=== PATIENT | female | born 1955 | race Caucasian/White ===

== ENCOUNTER 2019-06-18 21:19 | Emergency (ER) | payer MEDICARE ==
[~2019-06-18] VITALS: Ht 167.6 cm; Wt 71.0 kg
[2019-06-18] MEDS ORDERED: IV NORMAL SALINE 1,000ML 1,000 ML IV ONE (22:15)
[2019-06-18] MEDS ORDERED: ONDANSETRON PF 4 MG/2 ML VIAL. IV ONE (22:15)
[2019-06-18 22:45] LABS: BASO % 1 % (0-3); EOS % 0 % (0-3); HEMOGLOBIN 13.9 g/dL (12.0-15.5); LYMPH # 0.4 x10^3/uL (1.0-4.8); LYMPH % 8 % (24-48); MEAN CORPUSCULAR HEMOGLOBIN 28 pg (25-35); MEAN CORPUSCULAR HGB CONC 33 g/dL (31-37); MEAN CORPUSCULAR VOLUME 85 fL (79-100); MONO # 0.5 x10^3/uL (0.0-1.1); MONO % 11 % (0-9); NEUT # 3.9 x10^3uL (1.8-7.7); NEUT % 79 % (31-73); PLATELET COUNT 260 x10^3/uL (140-400); RED BLOOD COUNT 4.93 x10^6/uL (3.50-5.40); RED CELL DISTRIBUTION WIDTH 13.4 % (11.5-14.5); WHITE BLOOD COUNT 4.9 x10^3/uL (4.0-11.0)
[2019-06-18 22:51] LABS: CALCIUM 9.2 mg/dL (8.5-10.1); CREATININE 0.8 mg/dL (0.6-1.0); POTASSIUM 3.8 mmol/L (3.5-5.1)
[2019-06-18 22:57] LABS: BACTERIA,URINE 0 /HPF (0-FEW); BILIRUBIN,URINE NEG (NEG); CLARITY,URINE CLEAR; COLOR,URINE YELLOW; GLUCOSE,URINE NEG (NEG); NITRITE,URINE NEG (NEG); SQUAMOUS EPITHELIAL CELL,UR FEW /LPF; UROBILINOGEN,URINE 0.2 mg/dL (0.2 mg/dL)
[2019-06-18 22:57] LABS: ALBUMIN 3.9 g/dL (3.4-5.0); ALBUMIN/GLOBULIN RATIO 1.1 (1.0-1.7); TOTAL BILIRUBIN 0.2 mg/dL (0.2-1.0); TOTAL PROTEIN 7.5 g/dL (6.4-8.2)
[2019-06-18 22:58] LABS: HYALINE CASTS, URINE OCC /HPF
--- NOTE | 2019-06-18 23:19 | RAD ---
STUDY: CT head without contrast INDICATION: Severe headache. COMPARISON: None. TECHNIQUE: Axial CT imaging through the head without the use of intravenous contrast. Sagittal and coronal reformats were obtained. One or more of the following individualized dose reduction techniques were utilized for this examination: 1. Automated exposure control 2. Adjustment of the mA and/or kV according to patient size 3. Use of iterative reconstruction technique. FINDINGS: No acute intracranial hemorrhage. Lawrence-white matter differentiation is maintained. No mass effect, midline shift or hydrocephalus. Relatively age-appropriate parenchymal volume loss. Unremarkable orbits and scalp. Intact calvarium. Partially visualized mild bilateral maxillary sinus mucosal thickening without layering fluid. IMPRESSION: No acute intracranial abnormality. Electronically signed by: YAZMIN BRYANT MD (06/18/2019 11:16 PM) [id number]
--- NOTE | 2019-06-19 00:04 | RAD ---
AP chest. HISTORY: Fever AP view was taken of the chest. There is linear scarring or atelectasis at the left costophrenic angle. Lungs are otherwise free of infiltrates. Heart is normal in size. There is no effusion. There is a granuloma on the right. IMPRESSION: 1. No acute infiltrates. Electronically signed by: Eulalio Lemus MD (06/19/2019 12:02 AM) [id number]
[2019-06-19] MEDS ORDERED: DOXY100T PO (00:07)
[2019-06-19] MEDS ORDERED: ONDA4TAB12 PO (00:07)
[2019-06-19] MEDS ORDERED: HYDR-3165 PO (00:07)
--- NOTE | 2019-06-19 00:27 | PHYS DOC ---
Adult General Chief Complaint Chief Complaint: HEADACHE HPI HPI Patient is a [63-year-old female presenting with sinus congestion clear discharge from the nose and then progressive headache started yesterday slowly got worse throughout the day now with vomiting subjective fever she thought she had a fever earlier in the day today. She also has had some low back pain this might of started after the vomiting she is not really sure she was maybe worried about a kidney infection denies abdominal pain denies chest pain past medical history none medications none allergies none headache history she does get headaches once a month she does not carry a known diagnosis of migraine however. Pain is worse than she is used to having before. It was not thunderclap. Review of Systems Review of Systems Constitutional: Eyes: Denies change in visual acuity, redness, or eye pain [] HENT: Denies or sore throat [] Respiratory: Denies cough or shortness of breath [] Musculoskeletal: Denies back pain or joint pain [] Integument: Denies rash or skin lesions [] All other systems were reviewed and found to be within normal limits, except as documented in this note. Current Medications Current Medications Current Medications Medications (Trade) Dose Ordered Sig/Nella Start Time Stop Time Status Last Admin Dose Admin Acetaminophen/ Hydrocodone Bitart (Lortab 5/325) 2 tab 1X ONCE 06/19/19 00:15 06/19/19 00:16 UNV Doxycycline Hyclate (Vibra-Tab) 100 mg 1X ONCE 06/19/19 00:15 06/19/19 00:16 UNV Fentanyl Citrate (Fentanyl 2ml Vial) 50 mcg 1X ONCE 06/18/19 22:15 06/18/19 22:16 DC 06/18/19 22:23 50 MCG Ondansetron HCl (Zofran Odt) 4 mg 1X ONCE 06/19/19 00:15 06/19/19 00:16 UNV Ondansetron HCl (Zofran) 4 mg 1X ONCE 06/18/19 22:15 06/18/19 22:16 DC 06/18/19 22:21 4 MG Sodium Chloride 1,000 ml @ 1,000 mls/hr 1X ONCE 06/18/19 22:15 06/18/19 23:14 DC 06/18/19 22:23 1,000 MLS/HR Allergies Allergies Allergies Coded Allergies Type Severity Reaction Last Updated Verified No Known Drug Allergies 06/18/19 No Physical Exam Physical Exam Constitutional: Well developed, well nourished, mild distress, non-toxic appearance. [] No nuchal rigidity HENT: Normocephalic, atraumatic, bilateral external ears normal, oropharynx moist, no oral exudates, nose normal. [] There is bilateral sinus tenderness maxillary noted. No temporal artery tenderness Eyes: PERRLA, EOMI, conjunctiva normal, no discharge. [] Neck: Normal range of motion, no tenderness, supple, no stridor. [] Cardiovascular:Heart rate regular rhythm, no murmur [] Lungs & Thorax: Bilateral breath sounds clear to auscultation [] Abdomen: Bowel sounds normal, soft, no tenderness, no masses, no pulsatile masses. [] Skin: Warm, dry, no erythema, no rash. [] Back: No tenderness, no CVA tenderness. [] Extremities: No tenderness, no cyanosis, no clubbing, ROM intact, no edema. [] Neurologic: Alert and oriented X 3, normal motor function, normal sensory function, no focal deficits noted. [] Psychologic: Affect normal, judgement normal, mood normal. [] Current Patient Data Vital Signs Vital Signs Date Time Temp Pulse Resp B/P (MAP) Pulse Ox O2 Delivery O2 Flow Rate FiO2 06/18/19 22:23 18 98 Room Air Patient is afebrile blood pressure mildly elevated see nurse's note for complete vitals Lab Results Laboratory Tests Test 06/18/19 22:15 06/18/19 22:19 White Blood Count 4.9 x10^3/uL (4.0-11.0) Red Blood Count 4.93 x10^6/uL (3.50-5.40) Hemoglobin 13.9 g/dL (12.0-15.5) Hematocrit 42.0 % (36.0-47.0) Mean Corpuscular Volume 85 fL (79-100) Mean Corpuscular Hemoglobin 28 pg (25-35) Mean Corpuscular Hemoglobin Concent 33 g/dL (31-37) Red Cell Distribution Width 13.4 % (11.5-14.5) Platelet Count 260 x10^3/uL (140-400) Neutrophils (%) (Auto) 79 % (31-73) H Lymphocytes (%) (Auto) 8 % (24-48) L Monocytes (%) (Auto) 11 % (0-9) H Eosinophils (%) (Auto) 0 % (0-3) Basophils (%) (Auto) 1 % (0-3) Neutrophils # (Auto) 3.9 x10^3uL (1.8-7.7) Lymphocytes # (Auto) 0.4 x10^3/uL (1.0-4.8) L Monocytes # (Auto) 0.5 x10^3/uL (0.0-1.1) Eosinophils # (Auto) 0.0 x10^3/uL (0.0-0.7) Basophils # (Auto) 0.0 x10^3/uL (0.0-0.2) Sodium Level 141 mmol/L (136-145) Potassium Level 3.8 mmol/L (3.5-5.1) Chloride Level 103 mmol/L (98-107) Carbon Dioxide Level 26 mmol/L (21-32) Anion Gap 12 (6-14) Blood Urea Nitrogen 11 mg/dL (7-20) Creatinine 0.8 mg/dL (0.6-1.0) Estimated GFR (Cockcroft-Gault) 72.0 BUN/Creatinine Ratio 14 (6-20) Glucose Level 118 mg/dL (70-99) H Calcium Level 9.2 mg/dL (8.5-10.1) Total Bilirubin 0.2 mg/dL (0.2-1.0) Aspartate Amino Transferase (AST) 30 U/L (15-37) Alanine Aminotransferase (ALT) 23 U/L (14-59) Alkaline Phosphatase 87 U/L (46-116) Total Protein 7.5 g/dL (6.4-8.2) Albumin 3.9 g/dL (3.4-5.0) Albumin/Globulin Ratio 1.1 (1.0-1.7) Urine Collection Type Unknown Urine Color Yellow Urine Clarity Clear Urine pH 6.0 Urine Specific [place] 1.025 Urine Protein Neg (NEG-TRACE) Urine Glucose (UA) Neg mg/dL (NEG) Urine Ketones (Stick) 80 mg/dL (NEG) Urine Blood Neg (NEG) Urine Nitrite Neg (NEG) Urine Bilirubin Neg (NEG) Urine Urobilinogen Dipstick 0.2 mg/dL (0.2 mg/dL) Urine Leukocyte Esterase Neg (NEG) Urine RBC 1-2 /HPF (0-2) Urine WBC 1-4 /HPF (0-4) Urine Squamous Epithelial Cells Few /LPF Urine Bacteria 0 /HPF (0-FEW) Urine Hyaline Casts Occ /HPF Urine Mucus Marked /LPF EKG EKG [] Radiology/Procedures Radiology/Procedures []view was taken of the chest. There is linear scarring or atelectasis at the left costophrenic angle. Lungs are otherwise free of infiltrates. Heart is normal in size. There is no effusion. There is a granuloma on the right. IMPRESSION: 1. No acute infiltrates. Electronically signed by: Eulalio Lemus MD (06/19/2019 12:02 AM) [id number] DICTATED AND SIGNED BY: EULALIO LEMUS MD DATE: 06/19/19 0002 CC: AMERICO ORTEGA MD; JASON BRANHAM DO ~ Impressions: TECHNIQUE: Axial CT imaging through the head without the use of intravenous contrast. Sagittal and coronal reformats were obtained. One or more of the following individualized dose reduction techniques were utilized for this examination: 1. Automated exposure control 2. Adjustment of the mA and/or kV according to patient size 3. Use of iterative reconstruction technique. FINDINGS: No acute intracranial hemorrhage. Lawrence-white matter differentiation is maintained. No mass effect, midline shift or hydrocephalus. Relatively age-appropriate parenchymal volume loss. Unremarkable orbits and scalp. Intact calvarium. Partially visualized mild bilateral maxillary sinus mucosal thickening without layering fluid. IMPRESSION: No acute intracranial abnormality. Electronically signed by: YAZMIN BRYANT MD (06/18/2019 11:16 PM) [id number] DICTATED AND SIGNED BY: YAZMIN BRYANT MD DATE: 06/18/19 2316 CC: AMERICO ORTEGA MD; JASON BRANHAM DO ~ Course & Med Decision Making Course & Med Decision Making Pertinent Labs and Imaging studies reviewed. (See chart for details) [] 63-year-old female presenting with sinus congestion headache vomiting back pain neurologically intact not a thunderclap headache. Due to her age we did do a screening head CT that was negative acute. Did show some maxillary sinus wall thickening given her symptoms of sinus congestion and discharge we did give some antibiotics for likely sinusitis. Patient felt better in the emergency room after treatment and remained neurologically intact. Neck was supple I do not think this patient has meningitis I do not think the patient has subarachnoid hemorrhage it was not thunderclap it was gradually getting worse and worse and she has associated sinus symptoms with a supple neck Dragon Disclaimer Dragon Disclaimer This electronic medical record was generated, in whole or in part, using a voice recognition dictation system. Departure Departure: Impression: Primary Impression: Headache Disposition: HOME, SELF-CARE Condition: STABLE Patient Instructions: Headache, FAQs Scripts Doxycycline Hyclate (DOXYCYCLINE HYCLATE) 100 Mg Tablet 1 TAB PO BID for sinusitis, #14 TAB Prov: AMERICO ORTEGA MD 06/19/19 Hydrocodone Bit/Acetaminophen (NORCO 5-325 TABLET) 1 Each Tablet 1-2 TAB PO Q4-6HRS PRN for PAIN, #10 TAB Prov: AMERICO ORTEGA MD 06/19/19 Ondansetron (ONDANSETRON ODT) 4 Mg Tab.rapdis 1 TAB PO PRN Q6-8HRS PRN for NAUSEA/VOMITING, #16 TAB Prov: AMERICO ORTEGA MD 06/19/19 AMERICO ORTEGA MD Jun 19, 2019 00:27
[2019-06-19] MEDS ORDERED: HYDROcodone/APAP 5/325MG 1 TAB TABLET PO ONE (00:45)
[2019-06-19] MEDS ORDERED: DOXYCYCLINE HYCLATE 100 MG TABLET PO ONE (00:45)
[2019-06-19] MEDS ORDERED: ONDANSETRON ODT 4 MG TAB.RAPDIS PO ONE (00:45)
[2019-06-19] MEDS ORDERED: HYDROcodone/APAP 5/325MG 1 TAB TABLET ONE (00:53)
[2019-06-19] MEDS ORDERED: ONDANSETRON ODT 4 MG TAB.RAPDIS ONE (00:53)
[2019-06-19 00:59] VITALS: BP 120/59
== END 2019-06-19 01:06 | disposition home or self-care (01) ==
LOC: ER 21:19
DX: R51 Headache (principal); R09.81 Nasal congestion; R11.10 Vomiting, unspecified; R50.9 Fever, unspecified; M54.5 Low back pain
CPT/HCPCS: 36415; 70450; 71045; 80053; 81001; 85025; 96361; 96374; 96375; 99285; J2405; J3010; Q0162; J7030